=== PATIENT | male | born 1965 | race Caucasian/White ===

== ENCOUNTER 2024-02-09 07:06 | Day surgery (SDC) | payer BC ==
[2024-02-03 11:43] LABS: BASOPHILS % (AUTO) 0.6 % (0.0-2.0); EOSINOPHILS # (AUTO) 0.1 K/uL (0.0-0.4); EOSINOPHILS % (AUTO) 1.8 % (0.0-4.0); HEMATOCRIT 43.6 % (36-54); HEMOGLOBIN 14.8 g/dL (14.0-18.0); LYMPHOCYTES # (AUTO) 2.3 K/uL (1.0-5.5); LYMPHOCYTES % (AUTO) 30.3 % (20.5-51.5); MEAN CORPUSCULAR HEMOGLOBIN 29 pg (27-31); MEAN CORPUSCULAR HGB CONC 34 % (32-36); MEAN CORPUSCULAR VOLUME 86 fL (79.0-98.0); MONOCYTES # (AUTO) 0.5 K/uL (0.0-1.0); NEUTROPHILS # (AUTO) 4.7 K/uL (1.8-7.7); NEUTROPHILS % (AUTO) 61.3 % (40.0-70.0); PLATELET COUNT (AUTO) 202 K/uL (130-430); RED BLOOD CELL COUNT(AUTO) 5.08 MIL/uL (4.2-6.2); RED CELL DISTRIBUTION WIDTH 13.7 % (9.0-15.0); WHITE BLOOD COUNT (AUTO) 7.6 K/uL (4.8-10.8)
[2024-02-03 11:59] LABS: ALBUMIN 4.5 g/dL (3.4-4.8); CREATININE 0.87 mg/dL (0.55-1.30); POTASSIUM 4.1 mmol/L (3.5-5.1); TOTAL BILIRUBIN 0.8 mg/dL (0.0-1.0); TOTAL PROTEIN, SERUM 8.3 g/dL (6.4-8.3)
[2024-02-03 12:04] LABS: PROTHROMBIN TIME 10.4 SECS (9.5-12.5)
[~2024-02-09] VITALS: Ht 180.3 cm; Wt 113.4 kg
[~2024-02-09 07:06] MED LIST: CEFAZOLIN SOD 2 GM in D5W 50 ML IV ONE; LOP600 PO
[2024-02-09 08:47] VITALS: O2SAT 100
[2024-02-09] MEDS ORDERED: CELECOXIB 100 MG CAPSULE ONE (09:07)
[2024-02-09] MEDS ORDERED: SCOPOLAMINE HYDROBROMIDE 1 MG PATCH .72 H (TRANSDERM-SCOP) TD ONE (09:07)
[2024-02-09] MEDS ORDERED: ACETAMINOPHEN 500 MG TABLET ONE (09:07)
[2024-02-09] MEDS ORDERED: oxyCODONE HCL 10 MG TAB.ER.12H PO ONE (09:08)
[2024-02-09] MEDS ORDERED: GABAPENTIN 300 MG CAPSULE ONE (09:09)
[2024-02-09] MEDS: ACETAMINOPHEN 500 MG TABLET PO ONE (09:15)
[2024-02-09] MEDS: CELECOXIB 100 MG CAPSULE PO ONE (09:15)
[2024-02-09] MEDS: SCOPOLAMINE HYDROBROMIDE 1 MG PATCH .72 H (TRANSDERM-SCOP) TD ONE (09:15)
[2024-02-09] MEDS: GABAPENTIN 300 MG CAPSULE PO ONE (09:15)
[2024-02-09] MEDS ORDERED: METOCLOPRAMIDE HCL 10 MG/2 ML VIAL IVP PRN (09:30)
[2024-02-09] MEDS ORDERED: LACTULOSE 20 GM/30 ML UDC PO PRN (09:30)
[2024-02-09] MEDS ORDERED: BISACODYL 10 MG/SUPPOSITORY RC PRN (09:30)
[2024-02-09] MEDS ORDERED: DIPHENHYDRAMINE HCL 25 MG CAPSULE PO PRN (09:30)
[2024-02-09] MEDS ORDERED: BUPIVACAINE /DEX PF 0.75% SPINAL 2 ML AMP INJ ONE (09:35)
[2024-02-09] MEDS: oxyCODONE HCL 10 MG TAB.ER.12H PO ONE (09:40)
[2024-02-09] MEDS ORDERED: PROPOFOL DRIP 100 ML IV ONE (09:42)
[2024-02-09] MEDS ORDERED: MIDAZOLAM HCL 2 MG/2 ML VIAL (VERSED) ONE (09:42)
[2024-02-09] MEDS ORDERED: KETAMINE HCL IN 0.9 % NACL 50 MG/5 ML SYRINGE ONE (09:43)
[2024-02-09] MEDS ORDERED: ONDANSETRON HCL 4 MG/2 ML VIAL IVP PRN ×2 (10:45→11:45)
[2024-02-09] MEDS ORDERED: HYDROmorphone 1 MG/ML INJ. CARTRIDGE IVP PRN ×6 (10:45→11:00)
[2024-02-09] MEDS ORDERED: NALOXONE HCL 0.4 MG/ML AMP (NARCAN) IVP PRN (10:45)
[2024-02-09] MEDS ORDERED: hydrALAZINE HCL 20 MG/ML VIAL IV PRN (10:45)
[2024-02-09] MEDS ORDERED: LORATADINE 10 MG TABLET PO PRN (11:00)
[2024-02-09] MEDS ORDERED: oxyCODONE HCL 5 MG TABLET PO PRN ×2 (11:00)
[2024-02-09] MEDS ORDERED: traMADol HCL HCL 50 MG TABLET (ULTRAM) PO PRN (11:00)
[2024-02-09] MEDS ORDERED: ceFAZolin SODIUM 2 GM in D5W 50 ML IV SCH (11:15)
[2024-02-09] MEDS ORDERED: ACETAMINOPHEN 500 MG TABLET PO SCH (14:00)
[2024-02-09] MEDS ORDERED: KETOROLAC TROMETHAMINE 10 MG TABLET (TORADOL) PO SCH (14:00)
[2024-02-09] MEDS: TAMSULOSIN HCL 0.4 MG CAP PO ONE (14:22)
[2024-02-09 14:44] VITALS: BP_SYST 144; PULSE 54; RESP 15
[2024-02-09] MEDS ORDERED: SENNOSIDES/DOCUSATE SODIUM 1 TAB TABLET(SENOKOT-S) PO SCH (21:00)
[2024-02-10] MEDS ORDERED: ASPIRIN 81 MG TAB.CHEW PO SCH (09:00)
[2024-02-10] MEDS ORDERED: CELECOXIB 200 MG CAPSULE PO SCH (11:00)
[2024-02-10] MEDS ORDERED: TAMSULOSIN HCL 0.4 MG CAP PO SCH (13:00)
== END 2024-02-09 16:44 | disposition home or self-care (01) ==
LOC: SDS 07:06 → SMU 07:07 → EDSTATUS 10:00 → SDS 16:44
PROVIDERS: ATTEND Student in an Organized Health Care Education/Training Program
DX: M16.11 Unilateral primary osteoarthritis, right hip (principal); I10 Essential (primary) hypertension; G47.33 Obstructive sleep apnea (adult) (pediatric); E66.01 Morbid (severe) obesity due to excess calories; Z68.35 Body mass index [BMI] 35.0-35.9, adult; Z99.89 Dependence on other enabling machines and devices; G43.909 Migraine, unspecified, not intractable, without status migrainosus; Z79.01 Long term (current) use of anticoagulants; Z79.899 Other long term (current) drug therapy
CPT/HCPCS: 71046; 80053; 85025; 85610; 85730; 87081; 36415; 27130; 97162; 97530; 97110; 97116; 72170; 88305; 88311; J3490 ×2; J0690; J0696; J3465; J2704; J3370; J7060 ×2; J7120; A4649; C1776 ×4; C1713; 76000